=== PATIENT | male | born 1945 | race Asian ===

== ENCOUNTER 2018-12-21 07:04 | Day surgery (SDC) | payer OTHER ==
[~2018-12-21] VITALS: Ht 167.6 cm; Wt 63.9 kg
[~2018-12-21 07:04] MED LIST: AMLOATOR PO; GUAI120S1 PO; LISI20 PO; Lovastatin20 MG PO; PRAV40 PO
[2018-12-21] MEDS ORDERED: TELM80 PO (07:36)
--- NOTE | 2018-12-21 09:34 | NUR ---
12/21/[address] AWARE OF PT'S BP, NO FURTHER ORDERS GIVEN.
--- NOTE | 2018-12-21 12:02 | NUR ---
12/21/18 1201 Ema Verdugo LATE ENTRY: PT COUGHING DURING THE ENTIRE UPPER ENDOSCOPY. WHEN PASSING SCOPE PT STARTED COUGHING AND O2 MONDAY DROPPED TO LOW 80S. 2ND RN REQUESTED FOR AIRWAY SUPPORT. DR CARROLL NOTIFIED. LIDOCAINE GIVEN PER ORDER (SEE MEDICATION FLOW SHEET). SEPTEMBER, CREEL CLEANER INTO ROOM FOR THE REMAINDER OF THE PROCEDURE FOR AIRWAY SUPPORT. JAW THRUST ON & OFF T/O PROCEDURE. PROCEDURE COMPLETE. PT TAKING LONGER TIME TO WAKE UP. PT BP DROPPED AFTER PROCEDURE COMPLETE. DR. CARROLL NOTIFIED. EPHEDERINE GIVEN PER ORDER (SEE MEDICATION FLOW SHEET). PT COUGHING, PT ORALLY SUCTIONED. SMALL AMOUNT OF WHITAKER/ CLEAR FLUDIDS SUCTIONED ORALLY. PT STILL COUGHING UPON TRANSFER TO STEP DOWN. DR. CARROLL AWARE. NO FURTHER ORDERS GIVEN. VSS.
[2019-03-05] MEDS ORDERED: Zantac150 MG PO (15:00)
[2019-03-05] MEDS ORDERED: OMEPRAZOLE20 MG PO (15:00)
[2019-03-05] MEDS ORDERED: PANT40 PO (15:01)
== END 2018-12-21 09:31 | disposition home or self-care (01) ==
LOC: ORSCSDS 07:04
PROVIDERS: Internal Medicine Gastroenterology
PROC: 0DB58ZX Excision of Esophagus, Via Natural or Artificial Opening Endoscopic, Diagnostic (ICD-10-PCS; principal; 2018-12-21 08:30)
PROC: 0DB68ZX Excision of Stomach, Via Natural or Artificial Opening Endoscopic, Diagnostic (ICD-10-PCS; principal; 2018-12-21 08:30)
PROC: 0D758ZZ Dilation of Esophagus, Via Natural or Artificial Opening Endoscopic (ICD-10-PCS; principal; 2018-12-21 08:30)
PROC: 0DB88ZX Excision of Small Intestine, Via Natural or Artificial Opening Endoscopic, Diagnostic (ICD-10-PCS; principal; 2018-12-21 08:30)
DX: K21.0 Gastro-esophageal reflux disease with esophagitis (principal); K44.9 Diaphragmatic hernia without obstruction or gangrene; R05 Cough; E78.5 Hyperlipidemia, unspecified; E78.00 Pure hypercholesterolemia, unspecified; I10 Essential (primary) hypertension; Z79.899 Other long term (current) drug therapy; Z87.891 Personal history of nicotine dependence
CPT/HCPCS: 88305; J0461; J2405; J2704; J7120

== ENCOUNTER 2019-03-13 11:33 | Day surgery (SDC) | payer OTHER ==
[~2019-03-13] VITALS: Ht 165.1 cm; Wt 63.2 kg
[~2019-03-13 11:33] MED LIST changes: +OMEPRAZOLE20 MG PO; +PANT40 PO; +TELM80 PO; +Zantac150 MG PO
== END 2019-03-13 13:57 | disposition home or self-care (01) ==
LOC: ORSCSDS 11:33
PROVIDERS: Ophthalmology
PROC: 0NB Head and Facial Bones, Excision (ICD-10-PCS; principal; 2019-03-13 13:00)
DX: D17.79 Benign lipomatous neoplasm of other sites (principal); I10 Essential (primary) hypertension; Z87.891 Personal history of nicotine dependence; Z79.899 Other long term (current) drug therapy
CPT/HCPCS: 88304; J0171; J2250; J3010; J7120

== ENCOUNTER 2022-09-15 12:00 | Day surgery (SDC) | payer OTHER ==
[~2022-09-15] VITALS: Ht 157.5 cm; Wt 67.0 kg
== END 2022-09-15 14:15 | disposition home or self-care (01) ==
LOC: ORSCSDS 12:00
PROVIDERS: Internal Medicine Gastroenterology
PROC: 0DBN8ZX Excision of Sigmoid Colon, Via Natural or Artificial Opening Endoscopic, Diagnostic (ICD-10-PCS; principal; 2022-09-15 13:30)
PROC: 0DBM8ZX Excision of Descending Colon, Via Natural or Artificial Opening Endoscopic, Diagnostic (ICD-10-PCS; principal; 2022-09-15 13:30)
PROC: 0DBK8ZX Excision of Ascending Colon, Via Natural or Artificial Opening Endoscopic, Diagnostic (ICD-10-PCS; principal; 2022-09-15 13:30)
PROC: 0DBL8ZX Excision of Transverse Colon, Via Natural or Artificial Opening Endoscopic, Diagnostic (ICD-10-PCS; principal; 2022-09-15 13:30)
PROC: 0DBH8ZX Excision of Cecum, Via Natural or Artificial Opening Endoscopic, Diagnostic (ICD-10-PCS; principal; 2022-09-15 13:30)
PROC: 0DBP8ZX Excision of Rectum, Via Natural or Artificial Opening Endoscopic, Diagnostic (ICD-10-PCS; principal; 2022-09-15 13:30)
DX: Z12.11 Encounter for screening for malignant neoplasm of colon (principal); Z86.010 Personal history of colon polyps; D12.5 Benign neoplasm of sigmoid colon; D12.0 Benign neoplasm of cecum; D12.2 Benign neoplasm of ascending colon; D12.3 Benign neoplasm of transverse colon; K63.5 Polyp of colon; D12.4 Benign neoplasm of descending colon; K62.1 Rectal polyp; K64.8 Other hemorrhoids; I10 Essential (primary) hypertension; Z87.891 Personal history of nicotine dependence; Z79.899 Other long term (current) drug therapy
CPT/HCPCS: 88305; J0330; J0461; J2001; J2405; J2704; J7120; Q9968

== ENCOUNTER → 2024-03-11 | Outpatient (CLI) | payer OTHER | LOC: LAB 12:32 → LAB SHORT 12:32 | DX: N39.0 Urinary tract infection, site not specified (principal) | CPT/HCPCS: 87086 ==

== ENCOUNTER → 2024-03-26 | Outpatient (CLI) | payer OTHER ==
[2024-03-26 08:52] LABS: Source, Urine Clean Catch
[2024-03-26 12:31] LABS: Appearance, Urine Clear (Clear); Bilirubin, Urine Neg (Neg); Blood, Urine Neg (Neg); Color, Urine Yellow (P-Yellow); Glucose Qualitative, Urine Neg (Neg); Ketones, Urine Neg (Neg); Leukocyte Esterase, Urine Neg (Neg); Nitrite, Urine Neg (Neg); Protein, Urine Neg (Neg); Urobilinogen, Urine NORM (Normal)
== END | disposition home or self-care (01) ==
LOC: LAB 07:18 → LAB SHORT 07:18
PROVIDERS: Internal Medicine
DX: N39.0 Urinary tract infection, site not specified (principal); R31.9 Hematuria, unspecified
CPT/HCPCS: 81003